=== PATIENT | male | born 1965 | race Two or more races ===

== ENCOUNTER 2019-02-25 21:47 | Emergency (ER) | payer MEDICAID ==
[~2019-02-25] VITALS: Ht 182.9 cm; Wt 90.7 kg
[2019-02-25] MEDS ORDERED: SODIUM BICARBONATE 8.4% INJ 50ML SYRINGE IV ONE (21:51)
[2019-02-25] MEDS ORDERED: EPINEPHrine HCL 1 MG/10 ML SYRG IV ONE (21:51)
== END 2019-02-26 01:03 | disposition expired ==
LOC: EDBD 21:47 → ER 21:50 → EDBD 21:50 → ER 02-26 01:03
DX: I46.9 Cardiac arrest, cause unspecified (principal)
CPT/HCPCS: 92950; 99285; J0171